=== PATIENT | female | born 2005 | race Hispanic/Latino ===

== ENCOUNTER 2025-02-27 12:50 | Emergency (ER) | payer OTHER ==
[~2025-02-27] VITALS: Ht 160 cm; Wt 74.8 kg
[2025-02-27 13:36] VITALS: TEMP 98.7
[2025-02-27 14:00] VITALS: PULSE 61; RESP 18; O2SAT 97
[2025-02-27] MEDS ORDERED: CLINDAMYCIN HC150 MG PO (14:01)
== END 2025-02-27 14:10 | disposition home or self-care (01) ==
LOC: ER 13:32
DX: R21 Rash and other nonspecific skin eruption (principal)
CPT/HCPCS: 99282